=== PATIENT | male | born 1945 | race Caucasian/White ===

== ENCOUNTER → 2017-06-14 | Outpatient (CLI) | payer OTHER, BC ==
[~2017-06-14] MED LIST: ACTOS 45 MG45 M1 PO; ADULT LOW DOSE81 MG PO; ALLOPURINOL 30300 M1 PO; ALLOPURINOL 30300 M2 PO; ATIVAN1 MG PO; BACTRIM DS TAB1 EACH PO; COZAAR 50 MG TA50 MG PO; CRESTOR5 MG PO; DEXAMETHASONE 0.5 M1 OP; DEXAMETHASONE 44 M1 PO; DIFLUCAN PO; DITROPAN XL15 MG PO; FAMVIR PO; FUROSEMIDE 40 M40 M1 PO; GLIPIZIDE ER2.5 MG PO; GLUCOPHAGE500 MG PO; JANUVIA100 MG PO; LANTUSSOLASTAR SUBQ; LEUCOVORIN CALC15 MG PO; LEVAQUIN 500 M500 M2 PO; LISINOPRIL20 MG PO; LISINOPRIL30 MG PO; LOPRESSOR 50 MG50 M1 PO; LOPRESSOR PO; MIRALAX255 GM PO; NIACIN 500 MG500 M1 PO; NIASPAN 500 MG500 M1 PO; NORCO 5-325 TA1 EACH PO; POTASSIUM20 PO; RAPAFLO8 MG PO; SENNA PO; TRIPLE ANTIBIO1 EACH TP; VESICARE 5 MG TA5 M1 PO; WELCHOL 625 MG625 MG PO; ZOFRAN 4 MG ORAL4 M1 DIS
--- NOTE | ~2017-06-14 | 2DMMODE ---
[facility] [place] [address] 2 D/M-MODE ECHOCARDIOGRAM Name: PATRICK KOENIG V Room #: REG [facility]#: [id number] Admission: 06/14/17 Attend Phys: Abbey Hutton Discharge: Date of : 47 Date of Service: 06/14/17 1057 Report #: [id number] THIS REPORT FOR: //name// APPROVED REPORT Study performed: 06/14/2017 09:58:46 EXAM: Comprehensive 2D, Doppler, and color-flow Echocardiogram Patient Location: Out-Patient Room #: Echo lab Status: routine BSA: 2.02 HR: 92 bpm BP: 136/84 mmHg Other Information Study Quality: Adequate Indications Dyspnea 2D Dimensions RVDd: 36.35 mm LVEF(%): 74.41 (>50%) IVSd: 11.10 (7-11mm) LVOT Diam: 21.33 (18-24mm) LVDd: 31.79 mm PWd: 9.80 (7-11mm) Ascending Ao: 30.91 (22-36mm) LVDs: 18.42 (25-40mm) Aortic Root: 31.55 mm Martino's LVEF: 74.41 % Volumes Left Atrial Volume (Systole) Single Plane 4CH: 29.53 mL Single Plane 2CH: 32.79 mL LA ESV Index: 18.00 mL/m2 Aortic Valve AoV Peak Todd.: 1.54 m/s AO Peak Gr.: 9.47 mmHg LVOT Max P.69 mmHg LVOT Max V: 0.96 m/s MONICA Vmax: 2.23 cm2 Mitral Valve E/A Ratio: 0.7 MV Decel. Time: 397.39 ms MV E Max Todd.: 0.87 m/s [facility] [address] [place] [address] 2 D/M-MODE ECHOCARDIOGRAM Name: PATRICK KOENIG V Room #: [facility]#: [id number] Admission: 06/14/17 Attend Phys: Abbey Hutton Discharge: Date of : 47 Date of Service: 06/14/17 1057 Report #: [id number] MV A Todd.: 1.33 m/s MV PHT: 115.24 ms IVRT: 106.11 ms Pulmonary Valve PV Peak Todd.: 1.01 m/s PV Peak Gr.: 4.12 mmHg Pulmonary Vein P Vein S: 0.45 m/s P Vein A: 0.28 m/s P Vein D: 0.37 m/s P Vein A Dur.: 83.0 msec P Vein S/D Ratio: 1.22 Left Ventricle The left ventricle is normal size. There is normal left ventricular wall thickness. The left ventricular systolic function is normal. The left ventricular ejection fraction is within the normal range. LVEF is 60-65%. Grade I - abnormal relaxation pattern. Right Ventricle The right ventricle is normal size. The right ventricular systolic function is normal. Atria The left atrium size is normal. The right atrium size is normal. Aortic Valve Mild aortic valve sclerosis. No aortic regurgitation is present. There is no aortic valvular stenosis. Mitral Valve The mitral valve is normal in structure. There is no mitral valve regurgitation noted. No evidence of mitral valve stenosis. Tricuspid Valve The tricuspid valve is normal in structure. There is no tricuspid valve regurgitation noted. Pulmonic Valve The pulmonary valve is normal in structure. There is no pulmonic valvular regurgitation. Great Vessels The aortic root is normal in size. IVC is not visualized. [address] [address] 2 D/M-MODE ECHOCARDIOGRAM Name: PATRICK KOENIG V Room #: REG [facility]#: [id number] Admission: 06/14/17 Attend Phys: Abbey Hutton Discharge: Date of : 47 Date of Service: 06/14/17 1057 Report #: [id number] Pericardium There is no pericardial effusion. <Conclusion> The left ventricle is normal size. The left ventricular systolic function is normal. Grade I - abnormal relaxation pattern. The right ventricle is normal size. The left atrium size is normal. Mild aortic valve sclerosis. There is no aortic valvular stenosis. There is no mitral valve regurgitation noted. There is no pericardial effusion. <ELECTRONICALLY SIGNED> By: Myke Munson MD 06/14/17 1057 1057 1057 Myke Munson MD /INF
== END ==
LOC: CV 08:25
DX: I27.2 Other secondary pulmonary hypertension (principal); I35.8 Other nonrheumatic aortic valve disorders; R06.00 Dyspnea, unspecified

== ENCOUNTER → 2018-04-03 | Outpatient (CLI) | payer OTHER, BC ==
--- NOTE | ~2018-04-03 | PFR/MVV ---
[facility] [place] [address] PULMONARY FUNCTION MVV/REPORT Name: BRADLEYIRISPATRICK V Room #: [facility]#: [id number] Admission: 04/03/18 Attend Phys: Physician not on staff Discharge: Date of : 47 Report #: [id number] THIS REPORT FOR: //name// >> SPIROMETRY: (BTPS) Height: in cm Weight: lbs kg Exam Date: PRE-RX POST-RX PRED BEST %PRED BEST %PRED %CHG FVC LITERS . . . . . . FEV1 LITERS . . . . . . FEV1/FVC % . . . . . . NID98-28% L/Sec . . . . . . PEF L/SEC . . . . . . FEF50/FIF50 UNITLESS . . . . . . MVV L/Min . . . f 1/Min . . . >> LUNG VOLUMES: (BTPS) PRE-RX POST-RX PRED AVG %PRED AVG %PRED %CHG VC Liters . . . . . . TLC Liters . . . . . . RV Liters . . . . . . RV/TLC % . . . . . . FRC PL Liters . . . . . . FRC N2 Liters . . . . . . ERV Liters . . . . . . IC Liters . . . . . . >> DIFFUSION: DLCO ml/Min/mmHg . . . . . . DL Rani ml/Min/mmHg . . . . . . DLCO/VA ml/Min/mmHg . . . . . . VA Liters . . . . . . COMMENTS: COMMENTS: >> RESISTANCE: [facility] [address] [place] [address] PULMONARY FUNCTION MVV/REPORT Name: LIBERTYPATRICK V Room #: REG [facility]#: [id number] Admission: 04/03/18 Attend Phys: Physician not on staff Discharge: Date of : 47 Report #: [id number] PRE-RX PRED AVG %PRED Raw Total cmH20/L/Sec . . . Raw Insp cmH20/L/Sec . . . Raw Exp cmH20/L/Sec . . . Raw cmH20/L/Sec . . . Gaw L/Sec/cmH20 . . . sRaw cmH20 Sec . . . sGaw l/cmH20 Sec . . . Vtq Liters . . . # = OUTSIDE 95% CONFIDENCE INTERVAL CALIBRATION: PRED: 3.00 ACTUAL: EXP 3.01 INSP 3.02 [facility]-OL07-05 [facility]- N-1804-4 >> INTERPRETATION/IMPRESSION: CC: Shamar HAMILTON Physician staff DATE OF SERVICE: 04/03/2018 NOTATION: This appears to be a full pulmonary function study pre and post-bronchodilator; however, lung volume and DLCO maneuver do not appear to be adequately performed, if at all, although some raw data is present. I would dismiss those findings. With regards to spirometry, this was compared to 01/07/2018, which did show moderate restriction. The vital capacity is 1.72 liters or 52% of predicted. This has reduced from 1.94 or 59% of predicted on prior study 3 months ago. There is no significant change with bronchodilators. There is nothing for airflow obstruction or flow volume loop or spirometry. Concern for progressive restrictive disease is present. <ELECTRONICALLY SIGNED> By: Walker Duval MD 04/07/18 1122 Walker Duval MD /nt
== END ==
LOC: PUL 10:36
DX: J84.9 Interstitial pulmonary disease, unspecified (principal)

== ENCOUNTER → 2018-05-12 | Outpatient (CLI) | payer OTHER, BC ==
--- NOTE | ~2018-05-12 | PFR/MVV ---
[facility] [place] [address] PULMONARY FUNCTION MVV/REPORT Name: PATRICK KOENIG V Room #: [facility]#: [id number] Admission: 05/12/18 Attend Phys: Physician not on staff Discharge: Date of : 47 Report #: [id number] THIS REPORT FOR: //name// COPIES FOR: AGE: 72 SEX/RACE: M/C >> SPIROMETRY: (BTPS) Height: 66 in cm Weight: 193 lbs kg Exam Date: 05/12/18 PRE-RX POST-RX PRED BEST %PRED BEST %PRED %CHG FVC LITERS . 3.28 . 1.70 . 52 . 1.71 . 52 . 1 FEV1 LITERS . 2.58 . 1.43 . 55 . 1.46 . 56 . 2 FEV1/FVC % . 79 . 84 . 106 . 85 . 107 . 1 IOW08-38% L/Sec . 2.63 . 2.10 . 80 . 2.22 . 84 . 6 PEF L/SEC . 7.28 . 8.23 . 113 . 8.09 . 111 . -2 FEF50/FIF50 UNITLESS . <1.00 . 1.24 . . 1.42 . . 14 MVV L/Min . 113 . 76 . 67 f 1/Min . . 140 . >> LUNG VOLUMES: (BTPS) PRE-RX POST-RX PRED AVG %PRED AVG %PRED %CHG VC Liters . 3.28 . 1.73 . 53 . . . TLC Liters . 5.54 . 2.51 . 45 . . . RV Liters . 2.28 . 0.78 . 34 . . . RV/TLC % . 41 . 31 . [address] . . . FR[address] Liters . 2.95 . 1.32 . 45 . . . FRC N2 Liters . 2.95 . . . . . ERV Liters . . 0.54 . . . . IC Liters . . 1.19 . . . . >> DIFFUSION: DLCO ml/Min/mmHg . 20.5 . 10.1 . 49 . . . DL Rani ml/Min/mmHg . 20.5 . 10.1 . 49 . . . DLCO/VA ml/Min/mmHg . 3.55 . 5.02 . 142 . . . VA Liters . . 2.01 . . . . [address] [address] PULMONARY FUNCTION MVV/REPORT Name: PATRICK KOENIG V Room #: [facility]#: [id number] Admission: 05/12/18 Attend Phys: Physician not on staff Discharge: Date of : 47 Report #: [id number] COMMENTS: COMMENTS: >> RESISTANCE: PRE-RX PRED AVG %PRED Raw Total cmH20/L/Sec . . 2.09 . Raw Insp cmH20/L/Sec . . 2.70 . Raw Exp cmH20/L/Sec . . 3.11 . Raw cmH20/L/Sec . 1.61 . 1.19 . 74 Gaw L/Sec/cmH20 . 0.708 . 0.840 . 119 sRaw cmH20 Sec . 4.74 . 2.45 . 52 sGaw l/cmH20 Sec . 0.211 . 0.409 . 194 Vtq Liters . . 2.06 . # = OUTSIDE 95% CONFIDENCE INTERVAL CALIBRATION: PRED: 3.00 ACTUAL: EXP 3.01 INSP 3.02 [facility]-OL10-06 [facility]-05 N-1804-4 >> INTERPRETATION/IMPRESSION: CC: Shamar Finn Physician staff Spirometric examination revealed moderately reduced flows. There was no significant bronchodilator response. Lung volumes are severely reduced. Diffusion capacity is markedly reduced, but normal when corrected for alveolar volume. Compared to the previous study of 01/15/2018, the flows are reduced. FEV1 reduced from 1.99 liters to 1.71 liters or 52% predicted. Lung volumes are also reduced. Total lung capacity measured 3.6 liters or 65% predicted, down to 2.5 liters or 45% predicted. Diffusion capacity remained relatively unchanged. Flow volume loop is consistent with restrictive ventilatory defect. IMPRESSION: Severe restrictive ventilatory defect. Compared to the previous [facility] [address] [place] [address] PULMONARY FUNCTION MVV/REPORT Name: PATRICK KOENIG V Room #: REG [facility]#: [id number] Admission: 05/12/18 Attend Phys: Physician not on staff Discharge: Date of : 47 Report #: [id number] study, the flows, lung volumes have worsened. Clinical correlation is recommended. <ELECTRONICALLY SIGNED> By: Latrell Lizarraga MD 05/21/18 1656 Latrell Lizarraga MD /nt
== END ==
LOC: PUL 09:12
DX: J84.9 Interstitial pulmonary disease, unspecified (principal)

== ENCOUNTER → 2018-08-11 | Outpatient (CLI) | payer OTHER, BC ==
[~2018-08-11] VITALS: Ht 162.6 cm; Wt 72.6 kg
[~2018-08-11] MED LIST changes: +FARXIGA10 MG PO; +LANTUS100 UNIT/M SUBQ; +LIVALO4 MG PO; +METOPROLOL SUCC50 MG PO; +MOBIC15 MG PO; +NEXIUM40 MG PO; +SINGULAIR 10 MG10 M1 PO; +TROSPIUM CHLORI20 MG PO; +VICTOZA0.6 MG/0.1 SUBQ; +ZETIA10 MG PO
--- NOTE | ~2018-08-11 | HPC ---
[facility] [address] [address] [place] [address] PAIN MANAGEMENT CONSULTATION Name: PATRICK KOENIG V Room #: REG [facility] Megan.#: [id number] Admission: 08/11/18 Attend Phys: Ramón Jo MD Discharge: Date of : 47 Report #: [id number] THIS REPORT FOR: //name// CC: Shamar Jo DATE OF SERVICE: 08/11/2018 CHIEF COMPLAINT: Urethral pain. The patient is a pleasant 72-year-old who looks sick. He has lost 60 pounds. His color is ashen. He has had extensive workup with Dr. Lee as well as Dr. Escamilla for bladder issues. I have been able to review some of their notes. He has evidence of a bladder mucosal erythema, but biopsies apparently performed did not show cancer. He is highly symptomatic regarding his urinary tract. Over the course of the last 5 months, he has become progressively more incontinent and now wears a Depends diaper 24/ because he is incontinent of urine. He has a terrible burning sensation at the tip of his penis along the urethra. He has been told that he has prostate nodules, but apparently the urologist has not felt that this is significant enough to pursue further in a workup. He has a history of kidney stones identified in 04/2018 and microscopic hematuria. His benign prostatic hypertrophy has been followed for some time by his primary care physician, but only symptomatic to this degree in the last 5 months. The pain is at times incapacitating. He scores it as a 9/10 today, 10/10 frequently throughout the day every day. ALLERGIES: None. MEDICATIONS: Rapaflo, trospium, albuterol, aspirin, clobetasol ointment, Dulera, Esbriet tablets, omeprazole, Farxiga, Flonase, Livalo, meloxicam, metformin, metoprolol, montelukast, ProAir, Victoza, Zetia. PAST MEDICAL HISTORY: Type 2 diabetes, diverticulosis, gastroesophageal reflux disease and idiopathic pulmonary fibrosis. SOCIAL HISTORY: Denies use of tobacco or alcohol. Used to drink caffeine on a regular basis, has not done that months. 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 He is . His is with him today and supportive. REVIEW OF SYSTEMS: Positive for dyspnea on exertion and shortness of breath, wheezing and cough. He has intermittent diarrhea along with some mild [address] [address] PAIN MANAGEMENT CONSULTATION Name: PATRICK KOENIG V Room #: REG [facility]#: [id number] Admission: 08/11/18 Attend Phys: Ramón Jo MD Discharge: Date of : 47 Report #: [id number] constipation. He has abdominal pain. His pelvic pain is described in history of present illness. He has weight loss of 60 pounds over the course of the last 6 months. PHYSICAL EXAMINATION: GENERAL: He appears sick, color is poor, yanez and almost ashen. He is dyspneic at rest, short of breath getting up and standing in the room. CHEST: His chest reveals expiratory and inspiratory wheezing. CARDIAC: Rhythm is regular. ABDOMEN: Soft. No palpable masses. He has panniculus. GENITOURINARY: Shows a retracted penis with exquisite tenderness on the tip of the penis in that press up. There is no tenderness with pressure along the urethra. Some nodularity is palpated along that prostate. IMPRESSION: 1. Urethral pain. Incontinent and dysuria. 2. "End-stage bladder." This is Dr. Lee's diagnosis on 06/04/2018, I am not certain what he refers to by this. 3. Concerning weight loss of 60 pounds over the last several months. Workup by Dr. Awan has not identified a GI source. He has had some microscopic hematuria. I would think some concern might be raised for prostate, although uncertain if PSA has been checked. I will leave those decisions to the able urologists, Dr. Escamilla and Dr. Lee. PLAN: For symptom management, I have started him on hydrocodone 5/325 up to 4 times daily. I had extensive talk about opioids in the treatment of intractable pain. Extensive talk about side effects and risks of opioids including constipation and drowsiness. He will stop the medications if they cause any untoward side effects. An initial prescription of 60 tablets was provided. Further medication can be provided depending upon response. The patient will see Dr. David Campos this week for considerations of possible urinary tract infection. He has had 2 courses of antibiotics, although he cannot tell me the name. Followup visit planned in 2 weeks. By: [id number] Ramón Jo MD /nt
[2018-08-11 14:29] VITALS: BP 119/83
== END ==
LOC: PAIN 07:17
DX: N23 Unspecified renal colic (principal); N32.9 Bladder disorder, unspecified; R30.0 Dysuria; R32 Unspecified urinary incontinence; R31.9 Hematuria, unspecified; Z79.899 Other long term (current) drug therapy

== ENCOUNTER → 2018-08-25 | Outpatient (CLI) | payer OTHER, BC ==
[~2018-08-25] VITALS: Ht 162.6 cm; Wt 71.0 kg
[~2018-08-25] MED LIST changes: +HYDROCODON-ACE1 EAC5 PO; +MOVANTIK12.5 MG PO
--- NOTE | ~2018-08-25 | HPC ---
[facility] [place] [address] PAIN MANAGEMENT CONSULTATION Name: PATRICK KOENIG V Room #: REG [facility] Megan.#: [id number] Admission: 08/25/18 Attend Phys: Ramón Jo MD Discharge: Date of : 47 Report #: [id number] THIS REPORT FOR: //name// CC: Shamar Ng MD DATE OF SERVICE: 08/25/2018 Followup visit for dysuria and urethral pain. I evaluated the patient on 08/11/2018. His presentation remains a bit of a conundrum. He is pale, has had significant weight loss and has been worked up extensively for an active cancer, none has been identified. He has had incontinence of urine and has complained of severe urethral pain. He has seen Dr. Escamilla. A nodular hypertrophic prostate has been followed carefully by Urology. Hydrocodone 5 mg taken every 4-6 hours for pain was helpful. We had had an extensive talk about the use of opioids and the treatment of this condition including all of the potential side effects. He felt better when he was on it for the first 7 days and he said "it stopped working." He also saw Dr. Ng who urged him not to take it due to his history of obstipation. At one time in the past, he had to be disimpacted due to retained stool. His pain today has returned after the short period of improvement and he scores it as a 7 and 8. PHYSICAL EXAMINATION: Blood pressure is 116/84, heart rate 118. He is 5 feet 4 inches, 156 pounds with a BMI of 26.9. He has a bit of a fall risk and needs help standing and walking. He continues to have tenderness of the prepuce of the penis. IMPRESSION: Urethral pain with incontinence and dysuria. RECOMMENDATIONS: We will continue with the hydrocodone since it was effective at 10 mg. I am sensitive to Dr. Ng's concerns. He will continue to use MiraLax on a regular basis and if necessary, can use Movantik 12.5 mg daily, 1-2 tablets for opioid-induced constipation, they will monitor this carefully. I have also offered him an injection, I would consider a caudal injection to block the cycle of pain and a second option if all fails, [place] [address] PAIN MANAGEMENT CONSULTATION Name: PATRICK KOENIG V Room #: REG [facility]#: [id number] Admission: 08/25/18 Attend Phys: Raómn Jo MD Discharge: Date of : 47 Report #: [id number] of an intrathecal pump. Followup visit planned in 1 month. He was given a prescription for hydrocodone 10/325 one tablet q.4-6h., #120 and a prescription also for the Movantik 15 tablets with 5 refills. By: [id number] Ramón Jo MD /cherry
[2018-08-25 12:33] VITALS: BP 116/84
== END ==
LOC: PAIN 00:28
DX: R32 Unspecified urinary incontinence (principal); R30.0 Dysuria; N36.8 Other specified disorders of urethra; Z79.899 Other long term (current) drug therapy